=== PATIENT | female | born 1945 ===

== ENCOUNTER 2021-10-18 11:20 | Emergency (ER) | payer MEDICARE ==
[~2021-10-18] VITALS: Ht 165.1 cm; Wt 68.0 kg
[2021-10-18 13:06] LABS: Influenza A, PCR NEGATIVE (NEGATIVE); Influenza B, PCR NEGATIVE (NEGATIVE); Resp Syncytial Virus, PCR NEGATIVE (NEGATIVE)
[2021-10-18 13:13] LABS: SARS-Cov-2 (COVID-19) PCR, MMC POSITIVE (NEGATIVE)
== END 2021-10-18 15:49 | disposition home or self-care (01) ==
LOC: ER 11:20
PROVIDERS: Student in an Organized Health Care Education/Training Program
DX: U07.1 COVID-19 (principal); Z28.310 Unvaccinated for COVID-19
CPT/HCPCS: 0241U; J7030

== ENCOUNTER 2022-04-16 09:05 | Day surgery (SDC) | payer MEDICARE ==
[~2022-04-16] VITALS: Ht 165.1 cm; Wt 69.8 kg
[~2022-04-16 09:05] MED LIST: LEVOTHYROXINE PO
--- NOTE | 2022-04-16 10:17 | NUR ---
Ambulatory in Day Surgery. History, Chart, Medications and Allergies reviewed before start of procedure.Lungs clear T/O to Auscultation. Patient confirms NPO status and agrees with scheduled surgery. Pre-Op teaching done. Pt verbalizes understanding. Patient States Post-Procedure ride home has been arranged.
[2022-04-16] MEDS ORDERED: OXYB5ER PO (10:25)
--- NOTE | 2022-04-16 10:56 | NUR ---
04/16/22 1056 Alisson Ahumada HISTORY, CHART, MEDICATIONS AND ALLERGIES REVIEWED BEFORE START OF PROCEDURE. PATIENT CONFIRMS NPO STATUS AND AGREES WITH SCHEDULED PROCEDURE. 3-LEAD EKG REVIEWED WITH PHYSICIAN PRIOR TO START OF PROCEDURE. MONITOR INTACT WITH CONTINUOUS PULSE OXIMETRY,CAPNOGRAPHY, 3-LEAD EKG, INTERMITTENT BP. SUPPLEMENTAL O2 TO BE TITRATED THROUGHOUT PROCEDURE TO MAINTAIN O2 SATURATION ABOVE 90%. PATIENT DETERMINED TO BE ASA APPROPRIATE FOR PROPOFOL SEDATION PRIOR TO START OF PROCEDURE BY DR. REGAN. PER DR'S ORDERS, WILL BEGIN SEDATION WITH VERSED & FENTANYL, THEN PROCEED WITH PROPOFOL NEEDED TO REACH DEEP SEDATION.
--- NOTE | 2022-04-16 12:04 | NUR ---
Patient up to Ambulate independently. Gait steady. Discharge instructions reviewed with patient. Patient verbalizes understanding. Copy given to patient to take home, WELL . Patient States Post-Procedure ride home has been arranged. Discharged via wheelchair to private car for ride home.
== END 2022-04-16 12:04 | disposition home or self-care (01) ==
LOC: ORSCMMR 09:05 → ORD 10:00 → ORSCMMR 12:04
PROVIDERS: Internal Medicine Gastroenterology
PROC: 0DB48ZX Excision of Esophagogastric Junction, Via Natural or Artificial Opening Endoscopic, Diagnostic (ICD-10-PCS; principal; 2022-04-16 10:00)
PROC: 0DB68ZX Excision of Stomach, Via Natural or Artificial Opening Endoscopic, Diagnostic (ICD-10-PCS; principal; 2022-04-16 10:00)
PROC: 0DB58ZX Excision of Esophagus, Via Natural or Artificial Opening Endoscopic, Diagnostic (ICD-10-PCS; principal; 2022-04-16 10:00)
PROC: 0DB98ZX Excision of Duodenum, Via Natural or Artificial Opening Endoscopic, Diagnostic (ICD-10-PCS; principal; 2022-04-16 10:00)
DX: R13.14 Dysphagia, pharyngoesophageal phase (principal); R07.89 Other chest pain; K20.90 Esophagitis, unspecified without bleeding; K31.9 Disease of stomach and duodenum, unspecified; K44.9 Diaphragmatic hernia without obstruction or gangrene; E03.9 Hypothyroidism, unspecified; M06.9 Rheumatoid arthritis, unspecified; K21.9 Gastro-esophageal reflux disease without esophagitis; Z79.899 Other long term (current) drug therapy
CPT/HCPCS: 88305; 88342; A9270; J2250; J2704; J3010; J7120

== ENCOUNTER → 2022-09-08 | Outpatient (CLI) | payer MEDICARE ==
[~2022-09-08] MED LIST changes: +OXYB5ER PO
[2022-09-08 18:31] LABS: Source, Urine Clean Catch
[2022-09-08 18:37] LABS: Bacteria Few /hpf; Red Blood Cells, Urine 50-100 /hpf (0-2); Squamous Epithelial Cells Few /hpf (Few)
== END | disposition home or self-care (01) ==
LOC: LAB 18:30 → LAB SHORT 18:30
PROVIDERS: Physician Assistant Medical
DX: R31.9 Hematuria, unspecified (principal)
CPT/HCPCS: 81015; 87086

== ENCOUNTER 2022-10-24 11:15 | Emergency (ER) | payer MEDICARE ==
[~2022-10-24] VITALS: Ht 165.1 cm; Wt 63.5 kg
[2022-10-24 11:55] LABS: BASOPHILS ABSOLUTE AUTO 0.04 K/mm3 (0.00-0.23); BASOPHILS PERCENT AUTO 0 % (0-2); EOSINOPHILS ABSOLUTE AUTO 0.19 K/mm3 (0.00-0.68); EOSINOPHILS PERCENT AUTO 2 % (0-6); Hematocrit 35.1 % (33.0-51.0); Hemoglobin 11.5 g/dL (11.5-16.0); IMMATURE GRAN ABSOLUTE AUTO 0.04 K/mm3 (0.00-0.10); IMMATURE GRAN PERCENT AUTO 0 % (0-1); LYMPHOCYTES ABSOLUTE AUTO 2.74 K/mm3 (0.84-5.20); LYMPHOCYTES PERCENT AUTO 24 % (21-46); MONOCYTES PERCENT AUTO 10 % (4-13); Mean Corpuscular HGB 29.9 pg (26.0-34.0); Mean Corpuscular HGB Conc 32.8 g/dL (31.5-36.5); Mean Corpuscular Volume 91 fL (80-100); Mean Platelet Volume 11.1 fL (9.1-12.4); NEUTROPHILS ABSOLUTE AUTO 7.44 K/mm3 (1.96-9.15); NEUTROPHILS PERCENT AUTO 65 % (41-73); Platelet Count 322 K/mm3 (150-400); RDW Coefficient Variation 13.5 % (11.7-14.2); Red Blood Cell Count 3.85 M/mm3 (3.80-5.20); White Blood Cell Count 11.55 K/mm3 (4.00-11.30)
[2022-10-24 11:58] LABS: Source, Urine Suprapubic Cath
[2022-10-24 12:12] LABS: Albumin, Blood 3.3 g/dL (3.4-5.0); Albumin/Globulin Ratio 0.7 (0.8-1.8); Bilirubin, Total 0.4 mg/dL (0.1-1.0); Bun/Creatinine Ratio 15.1 (12.0-20.0); Calcium, Blood 9.1 mg/dL (8.5-10.1); Creatinine, Blood 0.8 mg/dL (0.40-1.00); Globulin, Blood 4.5 g/dL (2.2-4.0); Potassium, Blood 4.2 mmol/L (3.5-5.5); Total Protein, Blood 7.8 g/dL (6.4-8.2)
[2022-10-24 12:13] LABS: Bilirubin, Urine Neg (Neg); Blood, Urine Neg (Neg); Glucose Qualitative, Urine Neg (Neg); Ketones, Urine Neg (Neg); Leukocyte Esterase, Urine 3+ (Neg); Nitrite, Urine Neg (Neg); Protein, Urine Neg (Neg); Specific Gravity, Urine 1.005 (1.003-1.022); Urobilinogen, Urine NORM (Normal)
[2022-10-24 12:33] LABS: Appearance, Urine Hazy (Clear); Color, Urine Yellow (P-Yellow)
[2022-10-24 12:41] LABS: Bacteria Rare /hpf; Red Blood Cells, Urine Not Seen /hpf (0-2); Squamous Epithelial Cells Few /hpf (Few)
[2022-10-24] MEDS ORDERED: CEPH500 PO (13:11)
[2022-10-24 13:30] VITALS: BP 113/49
== END 2022-10-24 13:35 | disposition home or self-care (01) ==
LOC: ER 11:15
PROVIDERS: Emergency Medicine
DX: U07.1 COVID-19 (principal); N39.0 Urinary tract infection, site not specified; Z88.2 Allergy status to sulfonamides; Z91.018 Allergy to other foods; Z79.899 Other long term (current) drug therapy; M06.9 Rheumatoid arthritis, unspecified; E03.9 Hypothyroidism, unspecified
CPT/HCPCS: 80053; 81001; 85025; 87086; 87106; 96361; 96374; 99284-25; A9270; J2405; J7030

== ENCOUNTER 2023-07-02 20:26 | Emergency (ER) | payer OTHER ==
[~2023-07-02] VITALS: Ht 167.6 cm; Wt 65.8 kg
[~2023-07-02 20:26] MED LIST changes: +CEPH500 PO
[2023-07-02] MEDS ORDERED: Ketorolac Tromethamine 15mg Vial IM ONE (21:00)
[2023-07-02] MEDS ORDERED: MINOCYCLINE HC100 M1 PO (21:51)
[2023-07-02] MEDS ORDERED: ESTRADIOL42.5 GM VAG (21:52)
[2023-07-02] MEDS ORDERED: Diclofenac Pota50 MG PO (21:52)
[2023-07-02] MEDS ORDERED: Acetaminophen 325 MG TABLET PO ONE (22:40)
[2023-07-02] MEDS ORDERED: Ketorolac Tromethamine 30mg Vial IM ONE (22:40)
[2023-07-03 00:15] VITALS: BP 143/70
== END 2023-07-03 00:45 | disposition home or self-care (01) ==
LOC: ER 20:26
DX: M79.642 Pain in left hand (principal); M25.532 Pain in left wrist; Z88.2 Allergy status to sulfonamides; Z91.018 Allergy to other foods; Z79.899 Other long term (current) drug therapy; E03.9 Hypothyroidism, unspecified; M06.9 Rheumatoid arthritis, unspecified
CPT/HCPCS: 29125; 73100; 73120; 93005; 93010; 96372; 99283-25; A9270; J1885

== ENCOUNTER 2023-07-11 03:09 | Emergency (ER) | payer OTHER ==
[~2023-07-11] VITALS: Ht 165.1 cm; Wt 65.8 kg
[~2023-07-11 03:09] MED LIST changes: +Diclofenac Pota50 MG PO; +ESTRADIOL42.5 GM VAG; +MINOCYCLINE HC100 M1 PO
[2023-07-11 03:43] LABS: Source, Urine Suprapubic Cath
[2023-07-11 03:45] LABS: Bilirubin, Urine Neg (Neg); Blood, Urine 5+ (Neg); Glucose Qualitative, Urine Neg (Neg); Ketones, Urine Neg (Neg); Leukocyte Esterase, Urine 3+ (Neg); Nitrite, Urine Neg (Neg); Protein, Urine 3+ (Neg); Urobilinogen, Urine NORM (Normal)
[2023-07-11 03:47] LABS: Appearance, Urine Cloudy (Clear); Color, Urine Yellow (P-Yellow)
[2023-07-11 03:55] LABS: Bacteria Mod /hpf; Red Blood Cells, Urine 50-100 /hpf (0-2); Squamous Epithelial Cells Not Seen /hpf (Few); White Blood Cells, Urine TNTC /hpf (0-5)
[2023-07-11] MEDS ORDERED: Cefuroxime Axetil 250 MG Tab PO ONE (04:50)
[2023-07-11] MEDS ORDERED: Lidocaine 2% Jelly Uro-Jet UR ONE (05:00)
[2023-07-11] MEDS ORDERED: CEFU500T30 PO (05:49)
[2023-07-11] MEDS ORDERED: Pyridium100 MG PO (05:49)
[2023-07-11 06:10] VITALS: BP 148/92
== END 2023-07-11 06:15 | disposition home or self-care (01) ==
LOC: ER 03:09
PROVIDERS: Student in an Organized Health Care Education/Training Program
DX: N39.0 Urinary tract infection, site not specified (principal); Z93.59 Other cystostomy status; E03.9 Hypothyroidism, unspecified; M06.9 Rheumatoid arthritis, unspecified; Z88.2 Allergy status to sulfonamides; Z91.018 Allergy to other foods; Z79.890 Hormone replacement therapy; Z79.899 Other long term (current) drug therapy
CPT/HCPCS: 81001; A9270

== ENCOUNTER → 2024-03-11 | Outpatient (CLI) | payer OTHER ==
[~2024-03-11] MED LIST changes: +CEFU500T30 PO; +Pyridium100 MG PO
== END ==
LOC: LAB SHORT 17:40 → LAB 17:40
DX: J02.9 Acute pharyngitis, unspecified (principal)
CPT/HCPCS: 87081

== ENCOUNTER 2024-08-25 13:59 | Emergency (ER) | payer OTHER ==
[~2024-08-25] VITALS: Ht 162.6 cm; Wt 79.4 kg
[~2024-08-25 13:59] MED LIST changes: +CEFD300 PO
[2024-08-25 16:38] LABS: Source, Urine Straight Cath
[2024-08-25 16:46] LABS: Appearance, Urine Clear (Clear); Bilirubin, Urine Neg (Neg); Blood, Urine Neg (Neg); Color, Urine Yellow (P-Yellow); Glucose Qualitative, Urine Neg (Neg); Ketones, Urine Neg (Neg); Leukocyte Esterase, Urine Neg (Neg); Nitrite, Urine Neg (Neg); Protein, Urine 1+ (Neg); Specific Gravity, Urine 1.015 (1.003-1.022); Urobilinogen, Urine NORM (Normal)
[2024-08-25 18:03] VITALS: BP 167/83
== END 2024-08-25 18:04 | disposition home or self-care (01) ==
LOC: ER 13:59
PROVIDERS: Emergency Medicine
DX: R32 Unspecified urinary incontinence (principal); Z88.2 Allergy status to sulfonamides; Z91.018 Allergy to other foods; Z79.2 Long term (current) use of antibiotics; Z79.899 Other long term (current) drug therapy; Z90.711 Acquired absence of uterus with remaining cervical stump
CPT/HCPCS: 51798; 99283

== ENCOUNTER 2024-11-27 20:06 | Emergency (ER) | payer OTHER ==
[~2024-11-27] VITALS: Ht 162.6 cm; Wt 77.1 kg
[2024-11-27 20:53] VITALS: BP 160/75
[2024-11-27] MEDS ORDERED: Lidocaine 4% 1 Patch TOP ONE (21:05)
[2024-11-27] MEDS ORDERED: TRAM50 PO (21:10)
== END 2024-11-27 21:59 | disposition home or self-care (01) ==
LOC: ER 20:06
DX: M17.11 Unilateral primary osteoarthritis, right knee (principal); Z88.2 Allergy status to sulfonamides; Z79.899 Other long term (current) drug therapy; Z79.2 Long term (current) use of antibiotics; Z90.710 Acquired absence of both cervix and uterus
CPT/HCPCS: 99282; A9270

== ENCOUNTER 2024-11-29 08:40 | Emergency (ER) | payer OTHER ==
[~2024-11-29] VITALS: Ht 165.1 cm; Wt 66.2 kg
[~2024-11-29 08:40] MED LIST changes: +TRAM50 PO
[2024-11-29 10:30] VITALS: BP 173/72
== END 2024-11-29 10:45 | disposition home or self-care (01) ==
LOC: ER 08:40
DX: M17.11 Unilateral primary osteoarthritis, right knee (principal); Z88.2 Allergy status to sulfonamides; Z79.899 Other long term (current) drug therapy
CPT/HCPCS: 73562-RT; 99283-25; A6590; A9270

== ENCOUNTER 2025-02-06 11:46 | Day surgery (SDC) | payer OTHER ==
[~2025-02-06] VITALS: Ht 160 cm; Wt 67.8 kg
[2025-02-06] VITALS (12 sets, daily range): BP systolic 130–167; BP diastolic 59–76
[~2025-02-06 11:46] MED LIST changes: +DICLOFENAC POTA25 MG PO; -Diclofenac Pota50 MG PO; +FERSU300 PO; -LEVOTHYROXINE PO; +LEVSOD25 PO; +THYROID30 MG PO; +Zanaflex2 M1 PO
[2025-02-06] MEDS ORDERED: Chlorhexidine Mouth Care 15 ML UDC MT SCH (11:55)
[2025-02-06] MEDS ORDERED: Ropivacaine 0.5% HCl/Pf 123.125 MG,EPINEPHrine HCL 0.25 MG,Ketorolac Tromethamine 15 MG... INFIL SCH (11:55)
[2025-02-06] MEDS ORDERED: Tranexamic Acid 100 ML IV SCH (11:55)
[2025-02-06] MEDS ORDERED: CeFAZolin Sodium 2,000 MG in NS 100 ML IV SCH ×2 (11:55→22:15)
--- NOTE | 2025-02-06 12:25 | NUR ---
INTO SDS VIA WHEELCHAIR.PT DENIES PAIN. HISTORY AND ALLERGIES REVIEWED. LUNGS CLEAR. SATS>90% ON RA. BP 167/76-PT REPORTS ANXIETY HER "RIDE TO THE HOSPITAL CANCELED." NPO STATUS CONFIRMED. PT HAS WALKER AND THREE BAGS OF BELONGINGS. PT GLASSES AND HEARING AIDES IN THOSE BAGS.
[2025-02-06] MEDS ORDERED: Metoclopramide HCl 5MG / ML 2ML Vial IV PRN ×2 (13:15→14:45)
[2025-02-06] MEDS ORDERED: Ondansetron HCl 2 MG / ML 2ML Vial IV PRN (13:15)
[2025-02-06] MEDS ORDERED: Magnesium Hydroxide Conc 10 ML UDC PO PRN (13:15)
[2025-02-06] MEDS ORDERED: HYDROmorphone HCl/Pf 1MG SYR IV PRN ×3 (13:20→14:45)
[2025-02-06] MEDS ORDERED: FLU VACC TS2025(65UP)/MF59C/PF 45 MCG/0.5 ML SYRINGE IM SCH (13:20)
[2025-02-06] MEDS ORDERED: Midazolam HCl 1MG / ML 2ML Vial ONE (13:34)
[2025-02-06] MEDS ORDERED: HYDROmorphone HCl/Pf 1MG SYR ONE (14:32)
[2025-02-06] MEDS ORDERED: Ketamine HCl 100 MG / ML 5ML Vial ONE (14:34)
[2025-02-06] MEDS ORDERED: FentaNYL Citrate 50 MCG/ML 2 ML Injection IV PRN ×2 (14:45→14:50)
--- NOTE | 2025-02-06 16:20 | NUR ---
ARRIVAL TO SURGICAL UNIT VIA BARBIE, SLID TO HOSPITAL BED. VERY DROWSY & ONLY HALF OPENS EYES THEN APPEARS TO FALL BACK ASLEEP. UNABLE TO FOLLOW COMMANDS MORE THAN WIGGLE TOES WHEN ASKED. ASSESSMENT CHARTED. NO DRINK OR SNACKS GIVEN AT THIS TIME DUE TO SEDATION. BED ALARM ON FOR SAFETY & CONT PULSE OX VIA VS MACHINE.
[2025-02-06] MEDS ORDERED: Ketorolac Tromethamine 15mg Vial IV SCH (18:00)
[2025-02-07 00:08] VITALS: BP 130/69
[2025-02-07 04:55] LABS: BASOPHILS ABSOLUTE AUTO 0.02 K/mm3 (0.00-0.23); BASOPHILS PERCENT AUTO 0 % (0-2); EOSINOPHILS ABSOLUTE AUTO 0.00 K/mm3 (0.00-0.68); EOSINOPHILS PERCENT AUTO 0 % (0-6); Hematocrit 31.9 % (33.0-51.0); Hemoglobin 10.5 g/dL (11.5-16.0); IMMATURE GRAN ABSOLUTE AUTO 0.10 K/mm3 (0.00-0.10); IMMATURE GRAN PERCENT AUTO 1 % (0-1); LYMPHOCYTES ABSOLUTE AUTO 1.44 K/mm3 (0.84-5.20); LYMPHOCYTES PERCENT AUTO 10 % (21-46); MONOCYTES ABSOLUTE AUTO 0.73 K/mm3 (0.16-1.47); MONOCYTES PERCENT AUTO 5 % (4-13); Mean Corpuscular HGB Conc 32.9 g/dL (31.5-36.5); Mean Corpuscular Volume 86 fL (80-100); NEUTROPHILS ABSOLUTE AUTO 12.83 K/mm3 (1.96-9.15); NEUTROPHILS PERCENT AUTO 85 % (41-73); NRBC ABSOLUTE 0.00 K/mm3 (0.00-0.02); NRBC Auto 0.0 /100 WBC (0.0-0.2); Platelet Count 250 K/mm3 (150-400); RDW Coefficient Variation 14.8 % (11.7-14.2); RDW Standard Deviation 46.7 fL (35.1-46.3)
[2025-02-07 05:03] VITALS: BP 164/69
[2025-02-07 05:15] LABS: Anion Gap 10.0 mmol/L (3-11); Blood Urea Nitrogen 20.0 mg/dL (8-24); CO2, Blood 23.0 mmol/L (21-32); Calcium, Blood 8.7 mg/dL (8.5-10.1); Chloride, Blood 106.0 mmol/L (98-108); Creatinine, Blood 0.72 mg/dL (0.40-1.00); Glucose, Blood 165.0 mg/dL (70-99); Potassium, Blood 4.8 mmol/L (3.5-5.5); Sodium, Blood 134.0 mmol/L (136-145)
--- NOTE | 2025-02-07 06:46 | NUR ---
SHIFT SUMMARY PT S/P RIGHT TKA. PT HAS RESTED T/O THE NIGHT, PT REPORTS MINIMAL PAIN. MANAGED PER EMAR. PT HAD SOME NAUSEA WITH A SMALL AMOUNT OF EMESIS X1. PT DECLINED ANTIEMETICS. NAUSEA DID RESOLVE AFTER EMESIS. PT HAS SINCE BEEN ABLE TO TOELRATE PO INTAKE. POST OP VITALS STABLE. SURGICAL SITE WNL. PT HAS BEEN UP AND AMBULATING AND VOIDING. PLAN OF CARE REMAINS UNCHANGED OVERNIGHT. PLAN IS FOR DISCHARGE TODAY. BED IN LOWEST POSITION, CALL LIGHT WITHIN REACH.
[2025-02-07 07:20] VITALS: BP 147/66
[2025-02-07] MEDS ORDERED: ASPI81CH PO (07:50)
--- NOTE | 2025-02-07 10:05 | NUR ---
working with therapy
[2025-02-07 14:26] VITALS: BP 143/57
--- NOTE | 2025-02-07 15:27 | NUR ---
discharged DC PAPERWORK/INSTRUCTIONS REVIEWED W/PT; VERBALIZED UNDERSTANDING. DAUGHTER ADVISED ON WHEN PT CAN TAKE PAIN MEDS. IV DC'D. PT LEFT UNIT IN WC W/POSSESSIONS AND DC PAPERWORK IN HAND,ACCOMPANIED BY DAUGHTER.
== END 2025-02-07 15:21 | disposition home or self-care (01) ==
LOC: SURS 11:46 → ORSCMMR 11:46 → ORD 12:30 → SURS 16:10 → ORSCMMR 02-07 15:21
PROVIDERS: Orthopaedic Surgery
PROC: 0SRC0JA Replacement of Right Knee Joint with Synthetic Substitute, Uncemented, Open Approach (ICD-10-PCS; principal; 2025-02-06 14:00)
DX: M17.11 Unilateral primary osteoarthritis, right knee (principal); E07.9 Disorder of thyroid, unspecified; Z79.899 Other long term (current) drug therapy
CPT/HCPCS: 36415; 73560-RT; 80048; 85025; 97116; 97161; 97530; A9270; C1713; C1776; J0166; J0690; J0735; J1171; J1885; J2250; J2704; J2795; J7120